=== PATIENT | female | born 1970 | race African-American/Black ===

== ENCOUNTER 2017-06-20 08:20 | Emergency (ER) | payer MEDICAID ==
[~2017-06-20] VITALS: Ht 165.1 cm; Wt 58.0 kg
[2017-06-20 10:45] LABS: CLARITY URINE CLEAR (CLEAR); COLOR URINE YELLOW (YELLOW); KETONES URINE NEGATIVE (NEGATIVE); LEUKOCYTE ESTERASE URINE NEGATIVE (NEGATIVE); NITRITE URINE NEGATIVE (NEGATIVE); OCCULT BLOOD URINE NEGATIVE (NEGATIVE); PROTEIN URINE NEGATIVE (NEGATIVE); SPECIFIC GRAVITY URINE 1.005 (1.005-1.030); UROBILINOGEN URINE 0.2 E.U./dL (0.2-1.0)
[2017-06-20 11:15] LABS: BASOPHILS % 1.4 % (0.0-2.0); HEMATOCRIT. 34.2 % (36.0-48.0); HEMOGLOBIN. 11.2 g/dL (12.0-16.0); LYMPHOCYTES % 31.7 % (20.0-50.0); MEAN CORPUSCULAR HEMOGLOBIN 27.6 pg (28.0-32.0); MEAN CORPUSCULAR VOLUME 84.4 fL (81.0-99.0); MEAN PLATELET VOLUME 9.9 fl (7.4-10.4); MONOCYTES % 4.9 % (2.0-8.0); PLATELET 182 x1000/uL (130-400); RED BLOOD CELL COUNT 4.06 mill/uL (4.2-5.4); RED CELL DISTRIBUTION WIDTH 14.3 % (11.6-14.6)
[2017-06-20 11:21] LABS: CHLORIDE 105 mEq/L (98-107)
[2017-06-20 11:30] LABS: CARBON DIOXIDE 27 mEq/L (21-32)
[2017-06-20 12:15] VITALS: BP 112/69
== END 2017-06-20 13:19 | disposition home or self-care (01) ==
LOC: ER 08:29
DX: N81.89 Other female genital prolapse (principal); F12.10 Cannabis abuse, uncomplicated
CPT/HCPCS: 36415; 76830; 76856; 80053; 81003; 81025; 85025; 99285; Z7610

== ENCOUNTER 2020-01-05 17:40 | Emergency (ER) | payer MEDICAID ==
[~2020-01-05] VITALS: Ht 165.1 cm; Wt 65.0 kg
[2020-01-05 20:46] VITALS: BP 119/74
== END 2020-01-05 20:46 | disposition home or self-care (01) ==
LOC: ER 17:40
DX: R07.89 Other chest pain (principal); Z20.828 Contact with and (suspected) exposure to other viral communicable diseases; R05 Cough; F12.10 Cannabis abuse, uncomplicated
CPT/HCPCS: 71045; 93005; 99285; C9803; U0003; 99284

== ENCOUNTER 2020-01-24 17:40 | Emergency (ER) | payer MEDICAID ==
[~2020-01-24] VITALS: Ht 165.1 cm; Wt 60.0 kg
[2020-01-24 17:41] VITALS: BP 131/83
== END 2020-01-24 18:46 | disposition left against medical advice (07) ==
LOC: ER 17:40
DX: B34.9 Viral infection, unspecified (principal); R09.89 Other specified symptoms and signs involving the circulatory and respiratory systems; F12.10 Cannabis abuse, uncomplicated
CPT/HCPCS: 99281